=== PATIENT | male | born 1995 | race Caucasian/White ===

== ENCOUNTER 2021-07-20 06:15 | Day surgery (SDC) | payer BC, OTHER ==
[2021-07-16 14:29] VITALS: BMI 28.1
[2021-07-20] MEDS ORDERED: PROPOFOL 20 ML ONE ×2 (07:13)
[2021-07-20] MEDS ORDERED: SUCCINYLCHOLINE CHLORIDE 200 MG/10 ML SYRINGE ONE (07:13)
[2021-07-20] MEDS ORDERED: BUPIVACAINE LIPOSOME/PF (EXPAREL) 266 MG/20 ML VIAL ONE (07:41)
[2021-07-20] MEDS ORDERED: SODIUM CHLORIDE 0.9% P/F 10 ML VIAL IJ ONE (07:41)
[2021-07-20] MEDS ORDERED: BUPIVACAINE HCL/PF 0.5% (5MG/ML) 10 ML VIAL ONE (07:41)
[2021-07-20] MEDS ORDERED: MIDAZOLAM HCL 2 MG/2 ML SINGLE DOSE VIAL ONE (07:41)
[2021-07-20] MEDS ORDERED: EPINEPHrine 1:1,000 1 MG/1 ML - 30ML VIAL (INJECTION) ONE (07:52)
[2021-07-20] MEDS ORDERED: ePHEDrine SULFATE 50 MG/1 ML AMPULE ONE (08:08)
[2021-07-20] MEDS ORDERED: HYDROmorphone HCL/PF 1 MG/ML VIAL IVPB ONE (09:39)
[2021-07-20] MEDS ORDERED: PROMETHAZINE HCL 25 MG/1 ML VIAL IVPUSH PRN (09:39)
[2021-07-20] MEDS ORDERED: HYDROmorphone HCL/PF 1 MG/ML VIAL ONE (09:40)
[2021-07-20] MEDS ORDERED: LACTATED RINGERS SOLUTION 1,000 ML IV SCH (09:45)
[2021-07-20] MEDS ORDERED: oxyCODONE HCL 5 MG TABLET ONE (10:04)
[2021-07-20] MEDS ORDERED: oxyCODONE HCL 5 MG TABLET PO PRN ×2 (10:11)
[2021-07-20] MEDS ORDERED: ONDANSETRON 4 MG/2 ML VIAL IVPUSH PRN (10:11)
[2021-07-20] MEDS ORDERED: ACETAMINOPHEN 1000 MG/100 ML VIAL IVPB ONE (10:11)
[2021-07-20] MEDS ORDERED: HYDROmorphone HCL CARPU-JECT 2 MG/1 ML DISP.SYRIN IVPUSH ONE (10:12)
[2021-07-20 10:49] VITALS: TEMP 97.9
[2021-07-20 11:51] VITALS: BP 128/85; PULSE 80
== END 2021-07-20 11:52 | disposition home or self-care (01) ==
LOC: FASU 06:15 → EDBD 07:30 → FASU 11:52
PROVIDERS: ATTEND Orthopaedic Surgery
PROC: 0SBC4ZZ Excision of Right Knee Joint, Percutaneous Endoscopic Approach (ICD-10-PCS; 2021-07-20)
PROC: 0MRN47Z Replacement of Right Knee Bursa and Ligament with Autologous Tissue Substitute, Percutaneous Endoscopic Approach (ICD-10-PCS; principal; 2021-07-20 08:27)
DX: S83.511A Sprain of anterior cruciate ligament of right knee, initial encounter (principal); S83.8X1A Sprain of other specified parts of right knee, initial encounter; M65.861 Other synovitis and tenosynovitis, right lower leg; X58.XXXA Exposure to other specified factors, initial encounter; Y93.9 Activity, unspecified; Y92.9 Unspecified place or not applicable
CPT/HCPCS: 29888; C1713; 88304-TC; J0131